=== PATIENT | female | born 1985 | race Two or more races ===

== ENCOUNTER 2019-08-11 17:49 | Emergency (ER) | payer OTHER ==
[2019-08-11 17:54] VITALS: BP 134/86; PULSE 116; TEMP 100.4; BMI 33.0
[2019-08-11] MEDS ORDERED: IBUPROFEN 600 MG TABLET (FP) PO ONE ×2 (18:31→18:36)
--- NOTE | 2019-08-11 19:09 | PDOC ---
History of Present Illness - General Chief Complaint: Injury Stated Complaint: LEFT ANKLE INJURY Time Seen by Provider: 08/11/19 18:14 History Source: Patient Exam Limitations: No Limitations - History of Present Illness Initial Comments: 08/11/19 19:06 HISTORY OF PRESENT ILLNESS: 34-year-old woman presents emergency department for evaluation of left ankle pain after tripped on uneven pavement. Patient reports she landed awkwardly on her left ankle when she tripped with her right foot. Patient has not been ambulatory since initial injury as she has too much pain with weightbearing. Patient has not taken anything for pain prior to arrival in the emergency department. No recent travel or sick contacts. PAST MEDICAL HISTORY: Denies past medical history SURGICAL HISTORY: Denies ALLERGIES: Clindamycin, penicillin REVIEW OF SYSTEMS General/Constitutional: Denies fever or chills. Denies weakness, weight change. HEENT: Denies change in vision. Denies ear pain or discharge. Denies sore throat. Cardiovascular: Denies chest pain or shortness of breath. Respiratory: Denies cough, wheezing, or hemoptysis. Gastrointestinal: Denies nausea, vomiting, diarrhea or constipation. Denies rectal bleeding. Genitourinary: Denies dysuria, frequency, or change in urination. Musculoskeletal: See HPI Skin and breasts: Denies rash or easy bruising. Neurologic: Denies headache, vertigo, loss of consciousness, or loss of sensation. Psychiatric: Denies depression or anxiety. Endocrine: Denies increased thirst. Denies abnormal weight change. Hematologic/Lymphatic: Denies anemia, easy bleeding, or history of blood clots. Allergic/Immunologic: Denies hives or skin allergy. Denies latex allergy. PHYSICAL EXAM General Appearance: Well-appearing, appropriately dressed. No apparent distress, no intoxication. Vascular Pulses: Dorsalis-Pedis (R): 2+, Dorsalis-Pedis (L): 2+ Musculoskeletal/Extremities: Normal inspection. Normal capillary refill. No pedal edema, swelling, erythema or deformity. Left ankle tender over the lateral malleolus and tenderness present with calf squeeze. Patient unable to bear weight. Neurovascularly intact. Integumentary: Ecchymosis present to the dorsum of the left foot. 08/11/19 19:09 Past History - Past Medical History Allergies/Adverse Reactions: Allergies Allergy/AdvReac Type Severity Reaction Status Date / Time clindamycin Allergy Intermediate Itching Verified 08/11/19 17:54 Penicillins Allergy Mild Hives Verified 08/11/19 17:54 Home Medications: Ambulatory Orders Ibuprofen [Motrin -] 800 mg PO TID PRN 07/23/15 Anemia: No Asthma: No Cancer: No Cardiac Disorders: No COPD: No Diabetes: No HTN: No Seizures: No Thyroid Disease: No - Reproductive History (#): 10 Para: 8 Cervical CA: No Dysfunctional Uterine Bleeding: No Ectopic : No Endometrial CA: No Polycystic Ovaries: No Spontaneous : 1 - Immunization History Immunization Up to Date: Yes - Psycho Social/Smoking Cessation Hx Smoking Status: No Smoking History: Never smoked Have you smoked in the past 12 months: Yes Number of Cigarettes Smoked Daily: 8 'Breaking Loose' booklet given: 12/20/15 Hx Alcohol Use: No Drug/Substance Use Hx: No Substance Use Type: None Hx Substance Use Treatment: No *Physical Exam - Vital Signs Last Vital Signs Temp Pulse Resp BP Pulse Ox 100.4 F H 116 H 20 134/86 99 08/11/19 17:52 08/11/19 17:52 08/11/19 17:52 08/11/19 17:52 08/11/19 17:52 Procedures - Consent Consent obtained: Verbal - Splinting Splint Location: Left: Ankle Pre-Proc Neuro Vasc Exam: normal Hand-Made Type: orthoglass Splint Type: Yes: Long Leg Post-Proc Neuro Vasc Exam: normal, unchanged from pre-exam Sling: No Complications: No Progress: 08/11/19 19:31 Patient tolerated well. ED Treatment Course - RADIOLOGY Radiology Studies Ordered: Category Date Time Status ANKLE & FOOT-LEFT* [RAD] Stat Radiology 08/11/19 18:31 Ordered LEG TIB/FIB-LEFT [RAD] Stat Radiology 08/11/19 18:31 Ordered - Medications Given in the ED: ED Medications Discontinued Medications Generic Name Dose Route Start Last Admin Trade Name Freq PRN Reason Stop Dose Admin Ibuprofen 600 mg 08/11/19 18:31 08/11/19 18:38 Motrin - PO 08/11/19 18:32 600 mg ONCE ONE Administration Medical Decision Making - Medical Decision Making 08/11/19 19:09 A/P: 34-year-old woman with left ankle pain status post trip and fall Tenderness present over the left lateral malleolus Ecchymosis present over the dorsum of the left foot Tenderness with calf squeeze on the left side Given calf tenderness with squeeze and lateral malleolus high likelihood of fibula fracture. X-rays read by me: Spiral fracture of the left distal fibula Splinting-see procedure note for details Motrin 600 mg orally now Discharge home with orthopedic follow-up I discussed the physical exam findings, ancillary test results and final diagnoses with the patient. I answered all of the patient's questions. The patient was satisfied with the care received and felt comfortable with the discharge plan and treatment plan. The patient will call their primary care physician within 24 hours to arrange follow-up and will return to the Emergency Department with any new, persistent or worsening symptoms. Portions of this note have been documented using voice recognition software. As a result, errors may occur in the box truck owner operator process. Effort has been made to correct all grammatical and box truck owner operator error, but some may have been missed which may produce sporadic inaccurate box truck owner operator or nonsensical phrases. Discharge - Discharge Information Problems reviewed: Yes Clinical Impression/Diagnosis: Left fibular fracture Qualifiers: Encounter type: initial encounter Fibula location: distal Fracture type: closed Fracture morphology: other fracture Qualified Code(s): S82.832A - Other fracture of upper and lower end of left fibula, initial encounter for closed fracture Condition: Stable Disposition: HOME - Admission No - Follow up/Referral Referrals: Bran Wesley MD [Staff Physician] - - Patient Discharge Instructions Additional Instructions: You have a fracture of your fibula. Keep splint on your foot until you are evaluated by orthopedist. You been given a referral for orthopedic surgeon. Contact for reevaluation and definitive treatment of your fracture. Take Tylenol or Motrin as needed for pain. Follow stained glass window designer's instructions for appropriate dosage. Return to the emergency department immediately for numbness or tingling to your foot, discoloration of your foot, cold feeling in your foot or ankle, severe pain worse than initial injury or for any other concerns. Thank you very much for choosing us to provide your emergent healthcare needs. - Post Discharge Activity Work/Back to School Note: Back to Work
== END 2019-08-11 20:04 | disposition home or self-care (01) ==
LOC: JERFT 17:49
PROC: 2W3MX1Z Immobilization of Left Lower Extremity using Splint (ICD-10-PCS; principal; 2019-08-11)
DX: S82.832A Other fracture of upper and lower end of left fibula, initial encounter for closed fracture (principal); W18.39XA Other fall on same level, initial encounter; Y93.01 Activity, walking, marching and hiking; Y92.480 Sidewalk as the place of occurrence of the external cause; Y99.8 Other external cause status
CPT/HCPCS: 29345; 73590-TC-LT-FY; 73610-TC-LT-FY; 73630-TC-LT; 99283-25

== ENCOUNTER 2020-07-23 04:07 | Inpatient (IN) | payer OTHER ==
[2020-07-23] MEDS ORDERED: GENTAMICIN SO4 80 MG/2 ML VIAL ONE (07:25)
[2020-07-23] MEDS ORDERED: LIDOCAINE HCL 1% EPINEPHRINE 1:200,000 30 ML VIAL (PF) ONE (07:26)
[2020-07-23 09:32] VITALS: BMI 30.7
[2020-07-23] MEDS ORDERED: THROMBIN (BOVINE) 20,000 UNIT VIAL TP ONE (09:42)
[2020-07-23] MEDS ORDERED: PROPOFOL 20 ML ONE ×2 (10:11→11:37)
[2020-07-23] MEDS ORDERED: ROCURONIUM BROMIDE 50 MG/5 ML SYRINGE ONE (10:11)
[2020-07-23] MEDS ORDERED: SUCCINYLCHOLINE CHLORIDE 200 MG/10 ML SYRINGE ONE (10:11)
[2020-07-23] MEDS ORDERED: MIDAZOLAM HCL 2 MG/2 ML SINGLE DOSE VIAL ONE ×3 (10:46→12:34)
[2020-07-23] MEDS ORDERED: ceFAZolin 2 GRAM PREMIX BAG IVPB ONE (10:55)
[2020-07-23] MEDS ORDERED: VANCOMYCIN 1,000 MG VIAL (RESTRICTED TO ID ONLY) IVPB ONE (10:58)
[2020-07-23] MEDS ORDERED: HYDROGEN PEROXIDE 473 ML PO ONE (11:02)
[2020-07-23] MEDS ORDERED: THROMBIN (BOVINE) 5,000 UNIT VIAL TP ONE (11:02)
[2020-07-23] MEDS ORDERED: BACITRACIN 15 GM TUBE TOPICAL OINTMENT TP ONE (11:02)
[2020-07-23] MEDS ORDERED: BACITRACIN 15 GM TUBE TOPICAL OINTMENT ONE (11:02)
[2020-07-23] MEDS ORDERED: BACITRACIN 50,000 UNITS VIAL NR ONE (11:02)
[2020-07-23] MEDS ORDERED: GENTAMICIN 80MG PREMIX BAG IVPB ONE (11:02)
[2020-07-23] MEDS ORDERED: NEOSTIGMINE METHYLSULFATE 0.5 MG/1 ML - 10 ML MDV ONE (11:38)
[2020-07-23] MEDS ORDERED: oxyCODONE HCL 5 MG TABLET PO PRN (12:39)
[2020-07-23] MEDS ORDERED: PROMETHAZINE HCL 25 MG/1 ML VIAL IVPB PRN (12:39)
[2020-07-23] MEDS ORDERED: ONDANSETRON 4 MG/2 ML VIAL IVPUSH PRN (12:39)
[2020-07-23] MEDS ORDERED: MIDAZOLAM HCL 2 MG/2 ML SINGLE DOSE VIAL IVPUSH ONE (12:40)
[2020-07-23 16:21] VITALS: BP 120/70; PULSE 92; TEMP 97.8
== END 2020-07-23 16:15 | disposition home or self-care (01) | DRG 23 ==
LOC: J2C 04:07 → EDSTATUS 08:00
PROVIDERS: ADMIT Neurological Surgery; ATTEND Neurological Surgery
PROC: 00JV0ZZ Inspection of Spinal Cord, Open Approach (ICD-10-PCS; 2020-07-23)
PROC: 4A10X4G Monitoring of Central Nervous Electrical Activity, Intraoperative, External Approach (ICD-10-PCS; 2020-07-23)
PROC: 001U0J6 Bypass Spinal Canal to Peritoneal Cavity with Synthetic Substitute, Open Approach (ICD-10-PCS; principal; 2020-07-23 10:30)
DX: G96.198 Other disorders of meninges, not elsewhere classified (principal); G97.82 Other postprocedural complications and disorders of nervous system; Y83.8 Other surgical procedures as the cause of abnormal reaction of the patient, or of later complication, without mention of misadventure at the time of the procedure
CPT/HCPCS: 71045-TC-FY; 94760

== ENCOUNTER 2020-07-23 19:46 | Emergency (ER) | payer OTHER ==
[2020-07-23 20:03] VITALS: TEMP 98; BMI 33.2
[2020-07-23] MEDS ORDERED: ACETAMINOPHEN 325 MG TABLET (FP) PO ONE (21:51)
[2020-07-23] MEDS ORDERED: ACETAMINOPHEN 325 MG TABLET (FP) ONE (21:55)
[2020-07-23 23:22] VITALS: BP 121/78; PULSE 87
== END 2020-07-23 23:30 | disposition home or self-care (01) ==
LOC: JER 19:46
DX: G89.18 Other acute postprocedural pain (principal)
CPT/HCPCS: 99283-25

== ENCOUNTER 2020-11-10 03:59 | Emergency (ER) | payer OTHER ==
[2020-11-10 04:24] VITALS: BMI 34.7
[2020-11-10 05:16] LABS: EPI CELLS >36 /uL (0-25.1); HYALINE CASTS 2 /uL (0-3.1); URINE APPEARANCE CLOUDY; URINE BACTERIA 1586 /uL (0-1359); URINE BILIRUBIN NEGATIVE (NEGATIVE); URINE COLOR YELLOW; URINE GLUCOSE (UA) NEGATIVE (NEGATIVE); URINE KETONE NEGATIVE (NEGATIVE); URINE LEUK ESTERASE 2+ (NEGATIVE); URINE NITRITE NEGATIVE (NEGATIVE); URINE PROTEIN NEGATIVE (NEGATIVE); URINE RBC 21 /uL (0-23.9); URINE WBC 49 /uL (0-25.8)
[2020-11-10 05:53] LABS: BASO % 2.8 % (0-2.0); HEMATOCRIT 45.5 % (32.4-45.2); HEMOGLOBIN 14.9 GM/dL (10.7-15.3); MCH 27.2 pg (25.7-33.7); MCHC 32.7 g/dl (32.0-36.0); MEAN CELL VOLUME 83.1 fl (80-96); MEAN PLT VOLUME 8.2 fl (7.5-11.1); MONO % 7.6 % (3.8-10.2); NEUT % 56.6 % (42.8-82.8); PLATELET COUNT 251 10^3/uL (134-434); RBC 5.48 M/mm3 (3.60-5.2); RDW 13.4 % (11.6-15.6); WHITE BLOOD COUNT 3.8 K/mm3 (4.0-10.0)
[2020-11-10 06:11] LABS: CHLORIDE 108 mmol/L (98-107); SODIUM 138 mmol/L (136-145)
[2020-11-10 06:13] LABS: ANION GAP 6 MMOL/L (8-16); BLOOD UREA NITROGEN 14.2 mg/dL (7-18); CALCIUM 8.9 mg/dL (8.5-10.1); CO2 24 mmol/L (21-32); MAGNESIUM 1.9 mg/dL (1.8-2.4)
[2020-11-10 06:14] LABS: ALBUMIN 4.5 g/dl (3.4-5.0); GLUCOSE,RANDOM 96 mg/dL (74-106)
[2020-11-10 06:16] LABS: CREATININE 0.7 mg/dL (0.55-1.3)
[2020-11-10 06:17] LABS: SGOT/AST 13 U/L (15-37); SGPT/ALT 17 U/L (13-61)
[2020-11-10 06:18] LABS: BILIRUBIN,TOTAL 0.5 mg/dL (0.2-1); TOT PROT 7.9 g/dl (6.4-8.2)
[2020-11-10 06:19] LABS: ALK PHOS 79 U/L (45-117)
[2020-11-10 07:00] VITALS: BP 129/85; PULSE 88; TEMP 98.1
[2020-11-10] MEDS ORDERED: NITROFURANTOIN MACROCRYSTAL 50 MG CAPSULE (FP) PO SCH (07:00)
== END 2020-11-10 06:58 | disposition home or self-care (01) ==
LOC: JER 03:59
DX: N39.0 Urinary tract infection, site not specified (principal); G89.29 Other chronic pain; Z98.2 Presence of cerebrospinal fluid drainage device
CPT/HCPCS: 36415; 71046-TC-FY; 74176-TC; 80053; 81003; 83690; 83735; 84484; 84703; 85025; 87086; 93005; 93010; 99285-25

== ENCOUNTER 2022-01-15 07:12 | Emergency (ER) | payer OTHER ==
[2022-01-15 07:51] VITALS: BP 130/98; PULSE 75; RESP 18; TEMP 97.5; BMI 35.5
[2022-01-15] MEDS ORDERED: ONDANSETRON 4 MG/2 ML VIAL IVPUSH ONE (08:06)
[2022-01-15] MEDS ORDERED: SODIUM CHLORIDE 1,000 ML IV STA (08:06)
[2022-01-15] MEDS ORDERED: ACETAMINOPHEN 1000 MG/100 ML BAG IVPB ONE (08:06)
[2022-01-15] MEDS ORDERED: FAMOTIDINE 20 MG/50 ML IVPB 20 MG/50 ML MG IVPB ONE (08:17)
[2022-01-15] MEDS ORDERED: ACETAMINOPHEN INJECTION 100 ML IVPB ONE (08:17)
[2022-01-15] MEDS ORDERED: ONDANSETRON 4 MG/2 ML VIAL ONE (08:17)
[2022-01-15 09:01] LABS: BASO % 0.9 % (0-2.0); EOS % 2.7 % (0-4.5); HEMATOCRIT 38.4 % (32.4-45.2); LYMPH % 34.6 % (8-40); MCH 27.7 pg (25.7-33.7); MCHC 33.9 g/dl (32.0-36.0); MEAN CELL VOLUME 81.7 fl (80-96); MEAN PLT VOLUME 7.8 fl (7.5-11.1); MONO % 7.9 % (3.8-10.2); NEUT % 53.9 % (42.8-82.8); PLATELET COUNT 249 10^3/uL (134-434); RDW 13.1 % (11.6-15.6); WHITE BLOOD COUNT 4.4 K/mm3 (4.0-10.0)
[2022-01-15 09:10] LABS: CALCIUM 8.3 mg/dL (8.5-10.1)
[2022-01-15 09:11] LABS: ALBUMIN 3.5 g/dl (3.4-5.0); BLOOD UREA NITROGEN 11.3 mg/dL (7-18)
[2022-01-15 09:13] LABS: INR 0.95 (0.83-1.09); PROTHROMBIN TIME (PATIENT) 10.9 SEC (9.7-13.0)
[2022-01-15 09:14] LABS: CREATININE 0.7 mg/dL (0.55-1.3)
[2022-01-15 09:15] LABS: TOT PROT 6.6 g/dl (6.4-8.2)
[2022-01-15 09:16] LABS: BILIRUBIN,TOTAL 0.3 mg/dL (0.2-1)
[2022-01-15 09:21] LABS: EPI CELLS >36 /uL (0-25.1); HCG,QUALITATIVE URINE Negative; HYALINE CASTS 2 /uL (0-3.1); URINE APPEARANCE CLEAR; URINE BACTERIA 1207 /uL (0-1359); URINE BILIRUBIN NEGATIVE (NEGATIVE); URINE COLOR YELLOW; URINE GLUCOSE (UA) NEGATIVE (NEGATIVE); URINE KETONE NEGATIVE (NEGATIVE); URINE LEUK ESTERASE 1+ (NEGATIVE); URINE NITRITE NEGATIVE (NEGATIVE); URINE PROTEIN TRACE (NEGATIVE); URINE RBC 15 /uL (0-23.9); URINE UROBILINOGEN 0.2 mg/dL (0.2-1.0); URINE WBC 29 /uL (0-25.8)
[2022-01-15] MEDS ORDERED: FAMOTIDINE 20 MG/50 ML IVPB 20 MG/50 ML MG IVPB SCH (10:00)
[2022-01-15] MEDS ORDERED: KETOROLAC TROMETHAMINE 60 MG/2 ML VIAL IVPUSH ONE (11:54)
[2022-01-15] MEDS ORDERED: KETOROLAC TROMETHAMINE 15 MG/ML VIAL ONE (12:09)
== END 2022-01-15 16:14 | disposition home or self-care (01) ==
LOC: JER 07:12
PROC: 3E0333Z Introduction of Anti-inflammatory into Peripheral Vein, Percutaneous Approach (ICD-10-PCS; principal; 2022-01-15)
PROC: 3E033GC Introduction of Other Therapeutic Substance into Peripheral Vein, Percutaneous Approach (ICD-10-PCS; 2022-01-15)
PROC: 3E0333Z Introduction of Anti-inflammatory into Peripheral Vein, Percutaneous Approach (ICD-10-PCS; 2022-01-15)
PROC: 3E033GC Introduction of Other Therapeutic Substance into Peripheral Vein, Percutaneous Approach (ICD-10-PCS; 2022-01-15)
PROC: 3E0337Z Introduction of Electrolytic and Water Balance Substance into Peripheral Vein, Percutaneous Approach (ICD-10-PCS; 2022-01-15)
DX: R10.9 Unspecified abdominal pain (principal)
CPT/HCPCS: 36415; 74177-TC; 76705-TC; 80053; 81003; 83690; 84703; 85025; 85610; 87086; 93005; 93010; 99285-25

== ENCOUNTER 2024-07-15 02:20 | Emergency (ER) | payer OTHER ==
[2024-07-15] MEDS ORDERED: ONDANSETRON 4 MG/2 ML VIAL ONE (02:41)
[2024-07-15 02:42] VITALS: BP 116/80; PULSE 83; RESP 17; TEMP 98.8; BMI 32.3
[2024-07-15] MEDS: SODIUM CHLORIDE 0.9% 500 ML INFUS.BAG IV ONE (02:54)
[2024-07-15] MEDS: ONDANSETRON 4 MG/2 ML VIAL IVPB ONE (02:54)
[2024-07-15 03:20] LABS: BASO % 0.6 % (0-2.0); EOS % 0.8 % (0-4.5); HEMOGLOBIN 13.5 GM/dL (10.7-15.3); LYMPH % 20.6 % (8-40); MCH 29.2 pg (25.7-33.7); MCHC 34.6 g/dl (32.0-36.0); MEAN CELL VOLUME 84.5 fl (80-96); MEAN PLT VOLUME 7.5 fl (7.5-11.1); MONO % 5.2 % (3.8-10.2); NEUT % 72.8 % (42.8-82.8); PLATELET COUNT 245 10^3/uL (134-434); RBC 4.62 M/mm3 (3.60-5.2); RDW 12.9 % (11.6-15.6); WHITE BLOOD COUNT 5.1 K/mm3 (4.0-10.0)
[2024-07-15 03:51] LABS: POTASSIUM 3.6 mmol/L (3.5-5.1)
[2024-07-15 03:53] LABS: CALCIUM 8.6 mg/dL (8.5-10.1)
[2024-07-15 03:54] LABS: ALBUMIN 3.8 g/dl (3.4-5.0); BLOOD UREA NITROGEN 9.4 mg/dL (7-18)
[2024-07-15 03:57] LABS: CREATININE 0.8 mg/dL (0.55-1.3)
[2024-07-15 03:59] LABS: BILIRUBIN,TOTAL 0.3 mg/dL (0.2-1); TOT PROT 6.6 g/dl (6.4-8.2)
== END 2024-07-15 06:46 | disposition home or self-care (01) ==
LOC: JER 02:20
PROC: 3E033GC Introduction of Other Therapeutic Substance into Peripheral Vein, Percutaneous Approach (ICD-10-PCS; principal; 2024-07-15)
DX: G40.909 Epilepsy, unspecified, not intractable, without status epilepticus (principal); F10.920 Alcohol use, unspecified with intoxication, uncomplicated; R11.10 Vomiting, unspecified; M25.512 Pain in left shoulder
CPT/HCPCS: 36415; 70450-TC; 73030-TC-LT-FY; 80053; 80307; 82550; 82553; 85025; 99285-25